=== PATIENT | female | born 1990 | race American Indian/Alaskan Native ===

== ENCOUNTER → 2025-02-26 | Outpatient (CLI) | payer MEDICAID, SELFPAY ==
--- NOTE | 2025-02-26 09:54 | XR_ITS ---
Examination: Breast ultrasound, unilateral, right complete Date and time of exam: February 26, 2025, 1038 hours INDICATION: Palpable lump right breast beginning 4 days ago Technique: Real-time baron scale ultrasonographic imaging performed right breast including all 4 quadrants as well as nipple retroareolar and axillary region. Findings: 11:00 nodule lobular margins 13 x 10 mm 1:00 nodule versus glandular tissue 3.1 x 0.7 cm IMPRESSION: BI-RADS Category 3: Probably benign findings 3 to 6-month follow-up right breast sonogram strongly advised to document stability of nodule and nodule versus glandular tissue described above
== END | disposition home or self-care (01) ==
PROVIDERS: PCP Physician Assistant; Referring Provider Specialist; Visit Provider Specialist
DX: N63.12 Unspecified lump in the right breast, upper inner quadrant (principal); N63.11 Unspecified lump in the right breast, upper outer quadrant; Z34.81 Encounter for supervision of other normal pregnancy, first trimester
CPT/HCPCS: 76641